=== PATIENT | male | born 1975 | race Caucasian/White ===

== ENCOUNTER 2019-03-03 06:15 | Emergency (ER) | payer SELFPAY ==
--- NOTE | 2019-03-03 06:31 | EDM.PDOC ---
ED HPI GENERAL MEDICAL PROBLEM - General Chief Complaint: Respiratory Problem Stated Complaint: PERSISTENT COUGH AND FEVER Time Seen by Provider: 03/03/19 06:26 - History of Present Illness INITIAL COMMENTS - FREE TEXT/NARRATIVE: The patient presents to the ER for a significant cough that is been almost nonstop for the past couple of days. No fevers or chills, but he has felt tired. There is been some congestion but mainly just are very dry cough. No other complaints at this time. He has multiple sick contacts. - Related Data Allergies Allergy/AdvReac Type Severity Reaction Status Date / Time No Known Allergies Allergy Verified 03/03/19 06:22 Home Meds: Home Meds Benzonatate [Tessalon Perle] 200 mg PO Q8HR PRN #60 capsule 03/03/19 [Rx] ED ROS GENERAL - Review of Systems Review Of Systems: See Below Free Text/Narrative/Comment: Positive for cough and malaise, negative for fevers or chills, negative for syncope, negative for shortness of breath, further positives and per negatives are per HPI ED EXAM, GENERAL - Physical Exam Exam: See Below General Appearance: Alert, No Apparent Distress, Other (Persistent dry cough present, smells heavily of smoke, toxic) Eye Exam: Bilateral Eye: EOMI, PERRL Ears: Normal External Exam Nose: No: Nasal Flaring Throat/Mouth: Normal Voice Head: Atraumatic, Normocephalic Neck: Normal Inspection, Non-Tender, Full Range of Motion. No: Lymphadenopathy (L), Lymphadenopathy (R) Respiratory/Chest: No Respiratory Distress, Lungs Clear, Normal Breath Sounds, No Accessory Muscle Use, Other (Dry Cough present). No: Respiratory Distress, Rales, Rhonchi, Wheezing Cardiovascular: Regular Rate, Rhythm, No Edema, No Murmur Back Exam: Full Range of Motion Extremities: Normal Range of Motion Neurological: Alert, Oriented, Normal Cognition Psychiatric: Normal Affect, Normal Mood Skin Exam: Warm, Dry, Normal Color Course - Vital Signs Text/Narrative:: History and exam are consistent with a viral benign process. Education was provided and the patient will be given a prescription for Tessalon Perles. Departure - Departure Time of Disposition: 06:34 Disposition: Home, Self-Care 01 Condition: Good Clinical Impression: Viral bronchitis - Discharge Information Referrals: PCP,None [Primary Care Provider] - Additional Instructions: Ibuprofen and Tylenol for discomfort. Use regular [id number]-ebugqad remedies such as cough drops with menthol, humidifiers, tea with honey, etc. to help control your symptoms. No smoking Return to the ER if you develop difficulty breathing or any other concerns
== END 2019-03-03 06:45 | disposition home or self-care (01) ==
LOC: MW.ED 06:15
DX: J20.8 Acute bronchitis due to other specified organisms (principal)
CPT/HCPCS: 99283